=== PATIENT | male | born 1990 | race American Indian/Alaskan Native ===

== ENCOUNTER 2017-07-18 09:38 | Day surgery (SDC) | payer OTHER ==
[2017-07-11 09:33] VITALS: BMI 20.3
[2017-07-18 10:21] VITALS: RESP 18; O2SAT 100
[2017-07-18] MEDS ORDERED: Midazolam 2 MG/2 ML VIAL ONE (11:07)
[2017-07-18] MEDS ORDERED: Propofol 10 mg/ml Inj (20 ML) ONE (11:25)
[2017-07-18] MEDS ORDERED: Absorbable Gelatin Sponge Size 12-7 ONE (11:50)
--- NOTE | 2017-07-18 11:57 | CP.SDSHP ---
Same Day Surgery H & P - History Proposed Procedure: US guided left renal biopsy Pre-Op Diagnosis: Proteinuria - Allergies Allergies: Allergies No Known Allergies Allergy (Verified 07/11/17 09:31) - Physical Exam Vital Signs: Vital Signs 07/18/17 09:52 Temperature 97.7 F Pulse Rate 66 Respiratory 18 Rate Blood Pressure 128/73 O2 Sat by Pulse 100 Oximetry Mental Status: Alert & Oriented x3 Neuro: WNL Heart: WNL Lungs: WNL GI: WNL - Impression Impression: Pt with proteinuria referred for US guided renal biopsy. Plan left renal biopsy. Informed consent obtained. Pt. Evaluated Today:Candidate for Anesthesia & Procedure: Yes (ASA 2 Malampati 2) Short Stay Discharge - Short Stay Discharge Admitting Diagnosis/Reason for Visit: CHRONIC KIDNEY DISEASE, STAGE 3 (MODERATE)
--- NOTE | 2017-07-18 11:58 | PCM.SURG1 ---
Surgeon's Initial Post Op Note - Surgeon's Notes Surgeon: Boaz Arizmendi MD [place]: NONE Type of Anesthesia: Local Pre-Operative Diagnosis: Proteinuria Operative Findings: US showed slightly echogenic kidney. Otherwise, there is no hydro or mass. Post-Operative Diagnosis: Proteinuria Operation Performed: US guided left renal biopsy. Three 18-g core specimen obtained. BIopsy tract embolized with gelfoam. Specimen/Specimens Removed: 18 g core x 3 Estimated Blood Loss: EBL {In ML}: 1 Blood Products Given: N/A Drains Used: No Drains Post-Op Condition: Good Date of Surgery/Procedure: 07/18/17 Time of Surgery/Procedure: 11:55
[2017-07-18 12:20] VITALS: BP 108/63; PULSE 63; TEMP 97
--- NOTE | 2017-07-19 12:34 | US ---
PROCEDURE: Date of procedure: 07/18/2017 Procedure: Ultrasound-guided left renal biopsy, CPT 20450 Ultrasound guidance for biopsy, 77782 MEDICATIONS: 8 cc 2% Lidocaine, patient received IV sedation by the anesthesiologist along with physiologic monitoring. HISTORY: Proteinuria TECHNIQUE: Following informed consent and procedure time-out, the patient was placed prone on the interventional table and a limited ultrasound showed slightly echogenic left kidney consistent with medical renal disease. There is no hydronephrosis or mass. The patient left back was prepped and draped in the usual sterile fashion. After patient sedated by the anesthesiologist and the skin anesthetized with lidocaine, an 18 gauge core needle was advanced percutaneously towards the lower pole cortex. Upon confirmation of needle position, three-18 gauge core specimens were obtained and sent for routine pathology. The biopsy tract was then embolized with Gelfoam. A post biopsy ultrasound showed no hematoma. There were no immediate complications. IMPRESSION: Ultrasound-guided left renal biopsy.
== END 2017-07-18 12:50 | disposition home or self-care (01) ==
LOC: C.SPRAD 09:38
PROVIDERS: ATTEND Radiology Vascular & Interventional Radiology
DX: N18.3 Chronic kidney disease, stage 3 (moderate) (principal); R80.9 Proteinuria, unspecified
CPT/HCPCS: 49180; 76942; 88305; J2250; J2704; J3010